=== PATIENT | female | born 1985 | race Caucasian/White ===

== ENCOUNTER 2017-06-22 12:33 | Emergency (ER) | payer OTHER ==
[2017-06-22] MEDS ORDERED: Sodium Chloride 0.9% 1,000 ML ONE (13:11)
== END 2017-06-22 14:38 | disposition home or self-care (01) ==
LOC: NAV ERS 12:33
DX: B34.9 Viral infection, unspecified (principal); H81.90 Unspecified disorder of vestibular function, unspecified ear; J45.909 Unspecified asthma, uncomplicated; F41.9 Anxiety disorder, unspecified
CPT/HCPCS: 96360; J7050

== ENCOUNTER 2017-07-04 14:11 | Emergency (ER) | payer OTHER ==
[2017-07-04] MEDS ORDERED: Sodium Chloride 0.9% 100 ML ONE (14:33)
[2017-07-04] MEDS ORDERED: Sodium Chloride 0.9% 1,000 ML ONE (14:33)
[2017-07-04] MEDS ORDERED: diphenhydrAMINE 50 MG/ML VIAL ONE (14:33)
[2017-07-04] MEDS ORDERED: Acetaminophen 500 MG TAB ONE (14:33)
[2017-07-04] MEDS ORDERED: Metoclopramide HCl 10 MG/2 ML VIAL ONE (14:33)
== END 2017-07-04 15:48 | disposition home or self-care (01) ==
LOC: NAV ERS 14:11
DX: G43.909 Migraine, unspecified, not intractable, without status migrainosus (principal); J45.909 Unspecified asthma, uncomplicated; F41.9 Anxiety disorder, unspecified; Z79.899 Other long term (current) drug therapy
CPT/HCPCS: 96360; 96365; 96375; J1200; J2765; J7050

== ENCOUNTER 2018-01-19 11:01 | Emergency (ER) | payer OTHER ==
[2018-01-19] MEDS ORDERED: Sodium Chloride 0.9% 1,000 ML ONE ×2 (11:20→12:25)
[2018-01-19] MEDS ORDERED: Metoclopramide HCl 10 MG/2 ML VIAL ONE (11:35)
[2018-01-19] MEDS ORDERED: diphenhydrAMINE 50 MG/ML VIAL ONE (11:35)
== END 2018-01-19 13:22 | disposition home or self-care (01) ==
LOC: NAV ERS 11:01
DX: G43.909 Migraine, unspecified, not intractable, without status migrainosus (principal); J45.909 Unspecified asthma, uncomplicated; F41.9 Anxiety disorder, unspecified; Z79.899 Other long term (current) drug therapy
CPT/HCPCS: 96361; 96365; 96375; J1200; J2765; J7050